=== PATIENT | male | born 1990 | race Caucasian/White ===

== ENCOUNTER 2018-02-08 23:31 | Emergency (ER) | payer OTHER ==
[~2018-02-08] VITALS: Ht 180.3 cm; Wt 145.8 kg
[2018-02-09 00:08] VITALS: BP 120/87; PULSE 117; TEMP 97.4; O2SAT 97
[2018-02-09 02:01] VITALS: RESP 18; O2SAT 96
[2018-02-09 02:20] LABS: AUTOMATED NEUTROPHIL # 10.6 TH/MM3 (1.8-7.7); BASOPHIL # 0.1 TH/MM3 (0-0.2); BASOPHIL % 1.1 % (0.0-2.0); EOSINOPHIL # 0.1 TH/MM3 (0-0.4); EOSINOPHIL % 1.3 % (0.0-4.0); HEMATOCRIT 50.2 % (39.0-51.0); HEMOGLOBIN 17.5 GM/DL (13.0-17.0); LYMPH % 2.9 % (9.0-44.0); LYMPHOCYTE # 0.3 TH/MM3 (1.0-4.8); MEAN CELL VOLUME 83.4 FL (80.0-100.0); MEAN CORPUSCULAR HEMOGLOBIN 29.1 PG (27.0-34.0); MEAN CORPUSCULAR HGB CONC 34.9 % (32.0-36.0); MEAN PLATELET VOLUME 8.4 FL (7.0-11.0); MONO % 3.3 % (0.0-8.0); MONOCYTE # 0.4 TH/MM3 (0-0.9); NEUT % 91.4 % (16.0-70.0); PLATELET COUNT 272 TH/MM3 (150-450); RED BLOOD COUNT 6.01 MIL/MM3 (4.50-5.90); RED CELL DISTRIBUTION WIDTH 13.4 % (11.6-17.2); WHITE BLOOD COUNT 11.5 TH/MM3 (4.0-11.0)
[2018-02-09 02:30] LABS: CHLORIDE 104 MEQ/L (98-107); SODIUM (NA) 137 MEQ/L (136-145)
[2018-02-09 02:34] LABS: ALBUMIN 4.1 GM/DL (3.4-5.0); BICARBONATE 25.1 MEQ/L (21.0-32.0); BLOOD UREA NITROGEN 19 MG/DL (7-18); CALCIUM 9.2 MG/DL (8.5-10.1); GLUCOSE,RANDOM 118 MG/DL (74-106)
[2018-02-09 02:37] LABS: ALT (GPT) 31 U/L (12-78); AST (GOT) 21 U/L (15-37); CREATININE 0.86 MG/DL (0.60-1.30); GLOMERULAR FILTRATION RATE 108 ML/MIN (>89)
[2018-02-09 02:39] LABS: TOTAL BILIRUBIN ADULT 1.8 MG/DL (0.2-1.0); TOTAL PROTEIN 8.8 GM/DL (6.4-8.2)
[2018-02-09 02:40] LABS: ALKALINE PHOSPHATASE 109 U/L (45-117)
[2018-02-09] MEDS ORDERED: ONDANSETRON HCL 4 MG/2 ML VIAL IV PUSH ONE (03:00)
[2018-02-09] MEDS ORDERED: SODIUM CHLOR 0.9% 1000 ML INJ 1,000 ML IV ONE ×2 (03:00)
--- NOTE | 2018-02-09 04:20 | PD ---
HPI Chief Complaint: GI Complaint Time Seen by Provider: 02:53 Travel History International Travel<30 days: No Contact w/Intl Traveler<30days: No Traveled to known affect area: No History of Present Illness HPI 27-year-old male presents to the emergency department for complaint of nausea vomiting and diarrhea. Patient with recent exposure to child at home with similar symptoms. No fever or chills. No hematemesis no coffee-ground emesis no melena hematochezia. No reported dietary indiscretion well water ingestion or foreign travel. Patient is otherwise in good health and takes no medications or prescription medications on a regular basis. Patient took Pepto- Bismol yesterday without relief at 3 PM. Due to ongoing symptoms and generalized weakness patient presents at this time. Pain 7/10 intensity. PFSH Past Medical History Narrative Medical Negative past medical history negative surgical history; nursing notes reviewed Medical History: Denies Significant Hx Diminished Hearing: No Immunizations Current: Yes Tetanus Vaccination: < 5 Years Influenza Vaccination: Yes Past Surgical History Surgical History: No Previous Surgery Social History Alcohol Use: Yes (SOCIAL) Tobacco Use: Yes (2 CIGARS A MONTH) Substance Use: No Allergies-Medications (Allergen,Severity, Reaction): Coded Allergies: No Known Allergies (Unverified , 02/09/18) Reported Meds & Prescriptions Reported Meds & Active Scripts Active No Active Prescriptions or Reported Medications Review of Systems Except as stated in HPI: all other systems reviewed are Neg General / Constitutional: No: Fever, Chills HENT: No: Congestion Cardiovascular: No: Chest Pain or Discomfort Respiratory: No: Shortness of Breath Gastrointestinal: Positive: Nausea, Vomiting, Diarrhea Genitourinary: No: Dysuria, Decreased Urinary Output, Flank Pain Musculoskeletal: No: Myalgias Skin: No Rash Neurologic: No: Weakness Psychiatric: No: Anxiety Hematologic/Lymphatic: No: Lymph Node Enlargement Physical Exam Narrative GENERAL: Well-developed well-nourished male no acute distress no respiratory distress SKIN: Warm and dry. HEAD: Normocephalic. EYES: No scleral icterus. No injection or drainage. NECK: Supple, trachea midline. No JVD or lymphadenopathy. CARDIOVASCULAR: Regular rate and rhythm without murmurs, gallops, or rubs. RESPIRATORY: Breath sounds equal bilaterally. No accessory muscle use. GASTROINTESTINAL: Abdomen soft, non-tender, nondistended. MUSCULOSKELETAL: No cyanosis, or edema. BACK: Nontender without obvious deformity. No CVA tenderness. Data Data Last Documented VS Vital Signs Date Time Temp Pulse Resp B/P (MAP) Pulse Ox O2 Delivery O2 Flow Rate FiO2 02/09/18 05:40 98.2 103 18 111/73 (86) 97 Room Air Orders Orders Complete Blood Count With Diff (02/09/18 01:54) Comprehensive Metabolic Panel (02/09/18 01:54) Urinalysis - C+S If Indicated (02/09/18 01:54) Iv Access Insert/Monitor (02/09/18 01:54) Oximetry (02/09/18 01:54) Lipase (02/09/18 01:54) Influenzae A/B Antigen (02/09/18 01:54) Sodium Chlor 0.9% 1000 Ml Inj (Ns 1000 M (02/09/18 03:00) Sodium Chlor 0.9% 1000 Ml Inj (Ns 1000 M (02/09/18 03:00) Ondansetron Inj (Zofran Inj) (02/09/18 03:00) Labs Laboratory Tests Test 02/09/18 02:07 White Blood Count 11.5 TH/MM3 Red Blood Count 6.01 MIL/MM3 Hemoglobin 17.5 GM/DL Hematocrit 50.2 % Mean Corpuscular Volume 83.4 FL Mean Corpuscular Hemoglobin 29.1 PG Mean Corpuscular Hemoglobin Concent 34.9 % Red Cell Distribution Width 13.4 % Platelet Count 272 TH/MM3 Mean Platelet Volume 8.4 FL Neutrophils (%) (Auto) 91.4 % Lymphocytes (%) (Auto) 2.9 % Monocytes (%) (Auto) 3.3 % Eosinophils (%) (Auto) 1.3 % Basophils (%) (Auto) 1.1 % Neutrophils # (Auto) 10.6 TH/MM3 Lymphocytes # (Auto) 0.3 TH/MM3 Monocytes # (Auto) 0.4 TH/MM3 Eosinophils # (Auto) 0.1 TH/MM3 Basophils # (Auto) 0.1 TH/MM3 CBC Comment DIFF FINAL Differential Comment Blood Urea Nitrogen 19 MG/DL Creatinine 0.86 MG/DL Random Glucose 118 MG/DL Total Protein 8.8 GM/DL Albumin 4.1 GM/DL Calcium Level 9.2 MG/DL Alkaline Phosphatase 109 U/L Aspartate Amino Transf (AST/SGOT) 21 U/L Alanine Aminotransferase (ALT/SGPT) 31 U/L Total Bilirubin 1.8 MG/DL Sodium Level 137 MEQ/L Potassium Level 4.2 MEQ/L Chloride Level 104 MEQ/L Carbon Dioxide Level 25.1 MEQ/L Anion Gap 8 MEQ/L Estimat Glomerular Filtration Rate 108 ML/MIN Lipase 103 U/L MDM Medical Decision Making Medical Screen Exam Complete: Yes Emergency Medical Condition: Yes Medical Record Reviewed: Yes Interpretation(s) CBC & BMP Diagram 02/09/18 02:07 Total Protein 8.8 H, Albumin 4.1, Calcium Level 9.2, Alkaline Phosphatase 109, Aspartate Amino Transf (AST/SGOT) 21, Alanine Aminotransferase (ALT/SGPT) 31, Total Bilirubin 1.8 H Vital Signs Date Time Temp Pulse Resp B/P (MAP) Pulse Ox O2 Delivery O2 Flow Rate FiO2 02/09/18 05:40 98.2 103 18 111/73 (86) 97 Room Air 02/09/18 04:34 102 18 93/55 (68) 96 Room Air 02/09/18 02:01 18 96 Room Air 02/09/18 00:08 97.4 117 120/87 (98) 97 Differential Diagnosis Gastroenteritis, viral syndrome, electrolyte disturbance, dehydration; also to consider appendicitis Narrative Course Patient afebrile with mild tachycardia soft nontender abdomen without guarding or rebound; specimens collected and sent for resulting; patient administered 2 L normal saline and Zofran 4 mg IV At 4:18 AM patient reports clinically improved attempting oral hydration. At 5:40 AM patient feels markedly improved abdomen is soft nontender no guarding no rebound patient again is taking oral hydration well urinalysis is pending plan is to discharge patient to home with diagnosis of gastroenteritis prescription for Zofran clear liquid diet no work 2 days Diagnosis Primary Impression: Gastroenteritis Referrals: Primary Care Physician call for appointment Patient Instructions: General Instructions Departure Forms: Tests/Procedures, Work Release Special Instructions: no work x 2 days Additional Instructions: Increase fluid hydration Follow clear liquid diet for next 12-24 hours advance as tolerated to bland/ brat diet and then regular diet Take Zofran as prescribed as needed for nausea and/or vomiting Take acetaminophen/Tylenol as needed for fever 100.4F or greater Monitor temperature every 4 hours with thermometer and take antipyretic for fever 100.4F or greater Return to the emergency department for any concerns or change in condition no work 2 to Med/Other Pt SpecificInfo: Prescription(s) given Scripts Ondansetron Odt (Zofran Odt) 4 Mg Tab 4 MG SL Q6HR Y for Nausea/Vomiting, #10 TAB 0 Refills Prov: Kinga Hunter MD 02/09/18 Disposition: 01 DISCHARGE HOME Condition: Stable Kinga Hunter MD Feb 09, 2018 04:20
[2018-02-09 04:34] VITALS: BP 93/55; PULSE 102; RESP 18; O2SAT 96
[2018-02-09 05:40] VITALS: BP 111/73; PULSE 103; RESP 18; TEMP 98.2; O2SAT 97
[2018-02-09] MEDS ORDERED: ZOFR4TAB3 SL (05:45)
[2018-02-09 05:52] LABS: BILIRUBIN, URINE NEG (NEG); BLOOD, URINE MOD (NEG); GLUCOSE,URINE NEG (NEG); KETONE, URINE NEG (NEG); NITRITE,URINE NEG (NEG); PH, URINE 5.5 (5.0-8.5); URINE COLOR YELLOW (YELLW/STRAW); URINE LEUKOCYTE ESTERASE NEG (NEG)
[2018-02-09 06:34] LABS: MUCUS URINE MOD /lpf (OCC)
[2018-02-09 06:35] LABS: SQUAMOUS EPITHELIAL CELL URINE 0-5 /hpf (0-5)
[2018-02-09 06:37] LABS: AMORPHOUS SEDIMENT, URINE SMALL
[2018-02-09 06:38] LABS: WBC, URINE 0-2 /hpf (0-5)
== END 2018-02-09 06:21 | disposition home or self-care (01) ==
LOC: PHED 23:31
DX: K52.9 Noninfective gastroenteritis and colitis, unspecified (principal); Z72.0 Tobacco use
CPT/HCPCS: 80053; 81001; 83690; 85025; 87804; 96374; 99284; J2405; J7030